=== PATIENT | female | born 1960 | race Asian ===

== ENCOUNTER → 2023-06-07 08:30 | Outpatient (REF) | payer OTHER, SELFPAY | LOC: HWRAD 08:30 | PROVIDERS: ATTENDING PHYSICIAN Internal Medicine | DX: R79.89 Other specified abnormal findings of blood chemistry (principal) | CPT/HCPCS: 77080 ==

== ENCOUNTER → 2023-06-25 14:46 | Outpatient (REF) | payer OTHER, SELFPAY | LOC: HWWDC 14:46 | PROVIDERS: ATTENDING PHYSICIAN Internal Medicine | DX: Z12.31 Encounter for screening mammogram for malignant neoplasm of breast (principal) | CPT/HCPCS: 77063; 77067 ==